=== PATIENT | male | born 1990 ===

== ENCOUNTER 2018-01-25 10:45 | Emergency (ER) | payer OTHER ==
[2018-01-25 11:08] VITALS: RESP 16; O2SAT 98
[2018-01-25 12:26] LABS: BASO # 0.1 K/uL (0.0-0.2); BASO % 0.9 % (0.0-2.0); EOS # 0.1 K/uL (0.0-0.7); EOS % 1.7 % (0.0-4.0); HEMOGLOBIN 14.3 g/dL (12.0-18.0); LYMPH # 2.4 K/uL (1.0-4.3); LYMPH % 31.8 % (20.0-40.0); MEAN CORPUSCULAR HEMOGLOBIN 31.9 pg (27.0-31.0); MEAN CORPUSCULAR HGB CONC 35.8 g/dL (33.0-37.0); MEAN PLATELET VOLUME 8.3 fl (7.2-11.7); MONO # 0.4 K/uL (0.0-0.8); MONO % 5.1 % (0.0-10.0); NEUT # 4.5 K/uL (1.8-7.0); NEUT % 60.5 % (50.0-75.0); RBC 4.48 Mil/uL (4.40-5.90); RED CELL DISTRIBUTION WIDTH 13.8 % (11.5-14.5); WHITE BLOOD COUNT 7.5 K/uL (4.8-10.8)
[2018-01-25 12:34] LABS: INR 0.9 (0.9-1.2); PARTIAL THROMBOPLASTIN TIME 29.8 Seconds (25.6-37.1)
[2018-01-25 12:39] LABS: ALB/GLOB RATIO 1.2 (1.0-2.1); ALBUMIN 4.4 g/dL (3.5-5.0); ALT/SGPT 51 U/L (21-72); AST/SGOT 35 U/L (17-59); BLOOD UREA NITROGEN 13 mg/dl (9-20); CALCIUM 9.2 mg/dL (8.4-10.2); GFR AFRICAN-AMERICAN > 60; GFR NON-AFRICAN AMERICAN > 60; LIPASE 29 U/L (23-300)
--- NOTE | 2018-01-25 12:54 | ED PDOC ---
HPI: Chest Pain Time Seen by Provider: 01/25/18 11:31 Chief Complaint (Nursing): Chest Pain Chief Complaint (Provider): Chest Pain History Per: Patient History/Exam Limitations: no limitations Onset/Duration Of Symptoms: Days (x3) Current Symptoms Are (Timing): Still Present Quality: Squeezing Additional Complaint(s): 27 year old male, with a past medical history of HIV, presents to ED complaining of intermittent chest pain on the left side for the past 3 days. He states pain comes at rest and doesn't worsen with activity or exertion. Patient also reports right sided ear ache associated with a headache for the past 2 weeks. He was seen by his PMD last week and prescribed antibiotic ear drops which have relieved symptoms but wants repeat inspection. Denies fever, SOB, abdominal pain, cough, recent travel, prolonged immobility, calf pain, leg pain , vision changes, nausea, vomiting, diarrhea, and orthopnea. Of note, patient had a viral load done 4- 6 months ago which was undetectable. Patient has been compliant with his HIV regimen. PCP: Marvin Gonzalez Past Medical History Reviewed: Historical Data, Nursing Documentation, Vital Signs Vital Signs: Last Vital Signs Temp 98.1 F 01/25/18 14:39 Pulse 66 01/28/18 22:20 Resp 16 01/25/18 14:39 BP 132/71 01/25/18 14:39 Pulse Ox 98 01/28/18 22:20 - Medical History PMH: HIV - Surgical History Surgical History: No Surg Hx - Family History Family History: States: Unknown Family Hx Other Family History: Patient is adopted and unaware of family history. - Social History Current smoker - smoking cessation education provided: Yes (4 cigarettes daily) Alcohol: Social Drugs: Denies - Home Medications Home Medications: Ambulatory Orders Medication Instructions Recorded Naproxen 500 mg PO BID #20 tab 01/25/18 - Allergies Allergies/Adverse Reactions: Allergies Allergy/AdvReac Type Severity Reaction Status Date / Time No Known Allergies Allergy Verified 01/25/18 11:14 Review of Systems ROS Statement: Except As Marked, All Systems Reviewed And Found Negative Constitutional: Negative for: Fever Eyes: Negative for: Vision Change ENT: Positive for: Ear Pain (associated with headache) Cardiovascular: Positive for: Chest Pain Respiratory: Negative for: Cough, Shortness of Breath Gastrointestinal: Negative for: Nausea, Vomiting, Diarrhea Musculoskeletal: Negative for: Leg Pain, Other (calf pain) Physical Exam - Reviewed Nursing Documentation Reviewed: Yes Vital Signs Reviewed: Yes - Physical Exam Comments: GENERAL APPEARANCE: Patient is awake, alert, oriented x 3, in no acute distress , resting comfortably, speaking in full sentences. SKIN: Warm, dry; (-) cyanosis. EYES: (-) conjunctival pallor. ENMT: Mucous membranes moist. EARS: TMs are nonbulging and nonerythematous bilaterally. Pharynx: clear (-) erythema (-) exudate. Uvula midline. Nares patent (-) rhinorrhea NECK: Supple, FROM (-) tenderness, (-) stiffness, (-) lymphadenopathy, (-) JVD. CHEST AND RESPIRATORY: (-) rash, (-) chest wall tenderness. Lungs: (-) rales , (-) rhonchi, (-) wheezes, (-) rub; breath sounds equal bilaterally. Respirations even and nonlabored. HEART AND CARDIOVASCULAR: (-) chest wall tenderness (-) irregularity; (-) murmur, (-) gallop, (-) rub. ABDOMEN AND GI: Soft; (-) distention, (-) tenderness, (-) palpable pulsatile mass, (-) CVA tenderness. EXTREMITIES: (-) deformity; (-) edema, (-) calf tenderness. (+) distal pulses. NEURO AND PSYCH: Mental status as above. Cranial nerves grossly intact; strength symmetric. Cerebellar tests intact. Gait steady, speech clear. - Laboratory Results Result Diagrams: 01/25/18 12:15 01/25/18 12:15 Urine dip results: Positive for: Protein (30). Negative for: Leukocyte Esterase , Blood, Nitrate, Ketones, Glucose, Bilirubin - ECG ECG: Positive for: Interpreted By Me, Viewed By Me ECG Rhythm: Positive for: Sinus Rhythm (normal), ST/T Changes (no elevations) Interpretation Of ECG: No ectopy and QTC at 427. Rate: 66 O2 Sat by Pulse Oximetry: 98 (RA) Pulse Ox Interpretation: Normal Medical Decision Making Medical Decision Making: Initial Impression: Chest pain Initial Plan: IV access CMP CBC D-Dimer PTT PT/INR Drug screen Lipase Troponin Urine dipstick Chest X-ray HIV 1 RNA Toradol 30mg IM EKG 1345 Labs reviewed and grossly unremarkable. Utox (+) cannabinoids. CXR reviewed, radiology report follows: HISTORY: COMPARISON: No prior. TECHNIQUE: Chest PA and lateral FINDINGS: LINES AND TUBES: None. LUNG AND PLEURA: The lungs are well inflated and clear. No pleural effusion or pneumothorax. HEART AND MEDIASTINUM: The heart is not enlarged. The hilar and mediastinal contours are within normal limits. SKELETAL STRUCTURES: The bony structures are within normal limits for the patient's age. VISUALIZED UPPER ABDOMEN: Normal. OTHER FINDINGS: None. IMPRESSION: No active pulmonary disease. 1425 On re-evaluation, patient reports resolution of symptoms and denies chest pain, SOB, dizziness, headache at present. On exam, patient remains AAOx3, in no acute distress. Lungs clear to auscultation, cardiac RRR, abdomen soft, non- tender, repeat neuro exam shows no focal findings. VSS, stable for discharge. Lab/Diagnostic results d/w the patient in great detail. Diagnosis of nonspecific chest pain d/w the patient. Based on history, exam and diagnostic results, plan will be for outpatient follow up. Patient instructed to follow-up with pmd / referral provided / the clinic in 1- 2 days without fail. Advised to take medication as prescribed. Return to the emergency room at any time for any new or worsening symptoms. Patient states he fully agrees with and understands discharge instructions. States that he agrees with the plan and disposition. Verbalized and repeated discharge instructions and plan. I have given the patient opportunity to ask any additional questions. ------- Scribe Attestation: Documented by Hipolito Olivares acting as a scribe for Lesvia RODRÍGUEZ. Provider Scribe Attestation: All medical record entries made by the Scribe were at my direction and personally dictated by me. I have reviewed the chart and agree that the record accurately reflects my personal performance of the history, physical exam, medical decision making, and the department course for this patient. I have also personally directed, reviewed, and agree with the discharge instructions and disposition. Disposition - Clinical Impression Clinical Impression: Nonspecific chest pain - Patient ED Disposition Is Patient to be Admitted: No Counseled Patient/Family Regarding: Studies Performed, Diagnosis, Need For Followup, Rx Given - Disposition Referrals: Marvin Aguirre MD [Staff Provider] - Disposition: Routine/Home Disposition Time: 14:32 Condition: STABLE Additional Instructions: FOLLOW UP WITH PMD IN 1-2 DAYS WITHOUT FAIL. RETURN TO ED WITH ANY NEW OR WORSENING SYMPTOMS. Prescriptions: Naproxen 500 mg PO BID #20 tab Instructions: Chest Pain, Chest Pain That Is Not Caused by the Heart (DC) Forms: [employer] (Frisian) Print Language: ICELANDIC - POA Present On Arrival: None Results - Lab Results Lab Results: 01/25/18 01/25/18 01/25/18 18:37 12:47 12:15 WBC RBC Hgb Hct MCV MCH MCHC RDW Plt Count MPV Neut % (Auto) Lymph % (Auto) [place] % (Auto) Eos % (Auto) Baso % (Auto) Neut # (Auto) Lymph # (Auto) [place] # (Auto) Eos # (Auto) Baso # (Auto) PT 10.0 INR 0.9 APTT 29.8 D-Dimer, Quantitative 96 Sodium Potassium Chloride Carbon Dioxide Anion Gap BUN Creatinine Est GFR ( Amer) Est GFR (Non-Af Amer) Random Glucose Calcium Total Bilirubin AST ALT Alkaline Phosphatase Troponin I Total Protein Albumin Globulin Albumin/Globulin Ratio Lipase Urine Opiates Screen Negative Urine Methadone Screen Negative Ur Barbiturates Screen Negative Ur Phencyclidine Scrn Negative Ur Amphetamines Screen Negative U Benzodiazepines Scrn Negative U Oth Cocaine Metabols Negative U Cannabinoids Screen Positive H HIV-1 RNA Qnt (RT-PCR) <1.30 not detected 01/25/18 01/25/18 12:15 12:15 WBC 7.5 RBC 4.48 Hgb 14.3 Hct 39.9 MCV 89.0 MCH 31.9 H MCHC 35.8 RDW 13.8 Plt Count 241 MPV 8.3 Neut % (Auto) 60.5 Lymph % (Auto) 31.8 [place]berry % (Auto) 5.1 Eos % (Auto) 1.7 Baso % (Auto) 0.9 Neut # (Auto) 4.5 Lymph # (Auto) 2.4 Newberry # (Auto) 0.4 Eos # (Auto) 0.1 Baso # (Auto) 0.1 PT INR APTT D-Dimer, Quantitative Sodium 141 Potassium 4.2 Chloride 103 Carbon Dioxide 24 Anion Gap 18 BUN 13 Creatinine 0.9 Est GFR ( Amer) > 60 Est GFR (Non-Af Amer) > 60 Random Glucose 93 Calcium 9.2 Total Bilirubin 0.6 AST 35 ALT 51 Alkaline Phosphatase 72 Troponin I < 0.0120 Total Protein 8.1 Albumin 4.4 Globulin 3.7 Albumin/Globulin Ratio 1.2 Lipase 29 Urine Opiates Screen Urine Methadone Screen Ur Barbiturates Screen Ur Phencyclidine Scrn Ur Amphetamines Screen U Benzodiazepines Scrn U Oth Cocaine Metabols U Cannabinoids Screen HIV-1 RNA Qnt (RT-PCR)
[2018-01-25 13:36] LABS: BARBITURATES, UR NEGATIVE (NEGATIVE); BENZODIAZEPINES, UR NEGATIVE (NEGATIVE); OPIATES, UR NEGATIVE (NEGATIVE); PHENCYCLIDINE, UR NEGATIVE (NEGATIVE)
[2018-01-25 14:52] VITALS: BP 132/71; TEMP 98.1
[2018-01-28 22:17] VITALS: PULSE 66
== END 2018-01-25 14:41 | disposition home or self-care (01) ==
LOC: H.ER 10:45
DX: R07.89 Other chest pain (principal)
CPT/HCPCS: 71046; 80053; 80324; 80345; 80346; 80349; 80353; 80358; 80361; 83690; 83992; 84484; 85025; 85378; 85610; 85730; 87536; 96372; 99283; J1885

== ENCOUNTER 2018-10-24 20:20 | Emergency (ER) | payer BC ==
[2018-10-24 20:29] VITALS: RESP 18; TEMP 98.4
[2018-10-24] MEDS: Albuterol-Ipratrop 3 mg / 0.5 (3 ml) UD INH STA ×2 (21:36→21:37)
[2018-10-24] MEDS ORDERED: Albuterol-Ipratrop 3 mg / 0.5 (3 ml) UD ONE (21:36)
[2018-10-24 22:26] VITALS: O2SAT 99
[2018-10-24 22:30] VITALS: BP 145/82; PULSE 78
--- NOTE | 2018-10-24 22:33 | ED PDOC ---
HPI: SOB/CHF/COPD Time Seen by Provider: 10/24/18 20:52 Chief Complaint (Nursing): Shortness Of Breath Chief Complaint (Provider): Shortness Of Breath History Per: Patient History/Exam Limitations: no limitations Onset/Duration Of Symptoms: Hrs Current Symptoms Are (Timing): Still Present Additional Complaint(s): 28 y/o male with a PMHx of Asthma and is an active smoker presents to the ED for evaluation of dyspnea and shortness of breath. Patient reports of using a Ventolin pump that in 2017 with some relief of symptoms. Otherwise, patient denies fevers, sick contacts and recent travel. PMD: Viktor Aguirre Past Medical History Reviewed: Historical Data, Nursing Documentation, Vital Signs Vital Signs: Last Vital Signs Temp 98.4 F 10/24/18 20:28 Pulse 78 10/24/18 22:29 Resp 18 10/24/18 22:29 BP 145/82 10/24/18 22:29 Pulse Ox 99 10/24/18 22:29 - Medical History PMH: Asthma (seasonal), HIV - Surgical History Surgical History: No Surg Hx - Family History Family History: States: Unknown Family Hx - Social History Current smoker - smoking cessation education provided: Yes (0.5 packs a day) - Home Medications Home Medications: Ambulatory Orders Medication Instructions Recorded RX: Naproxen 500 mg PO BID #20 tab 01/25/18 Albuterol HFA [Ventolin HFA 90 2 puff IH [id number] #1 puff 10/24/18 mcg/actuation (8 g)] RX: predniSONE [predniSONE Tab] 60 mg PO DAILY #9 tab 10/24/18 - Allergies Allergies/Adverse Reactions: Allergies Allergy/AdvReac Type Severity Reaction Status Date / Time No Known Allergies Allergy Verified 01/25/18 11:14 Review of Systems ROS Statement: Except As Marked, All Systems Reviewed And Found Negative Respiratory: Positive for: Shortness of Breath, Other (dyspnea) Physical Exam - Reviewed Nursing Documentation Reviewed: Yes Vital Signs Reviewed: Yes - Physical Exam Appears: Positive for: No Acute Distress Head Exam: Positive for: ATRAUMATIC, NORMOCEPHALIC Skin: Positive for: Normal Color, Warm, Dry Eye Exam: Positive for: Normal appearance, EOMI, PERRL Neck: Positive for: Normal, Painless ROM, Supple Cardiovascular/Chest: Positive for: Regular Rate, Rhythm. Negative for: Murmur Respiratory: Positive for: Wheezing (mild faint wheezing bilaterally). Negative for: Accessory Muscle Use, Respiratory Distress Gastrointestinal/Abdominal: Positive for: Normal Exam, Soft. Negative for: Tenderness Extremity: Positive for: Normal ROM. Negative for: Deformity Neurologic/Psych: Positive for: Alert, Oriented. Negative for: Motor/Sensory Deficits - ECG O2 Sat by Pulse Oximetry: 99 (RA) Pulse Ox Interpretation: Normal Medical Decision Making Medical Decision Making: Time: 2057 A/P: 28 y/o active smoker with a history of Asthma presenting with shortness of breath. -- Patient very well appearing with normal vitals. -- Likely experiencing minor asthma exacerbation. -- Will provide nebulizer treatment and steroids. -- Will obtain CXR -- EKG -- CXR Two Views -- Duoneb 3mg/0.5mg 3ml (UD) 3ml INH -- Duoneb 3mg/0.5mg 3ml (UD) 3ml INH -- PredniSONE 40 mg PO -- Peak Flow Pre/Post Tx Time: 2200 -- Patient no longer wheezing and reports an improvement of symptoms at this time. Provided patient risks of smoking and damages to lungs. Patient strongly advised to follow up with PMD at [facility] for further management. Scribe Attestation: Documented by Nikos Oliva, acting as a scribe for Memo Evans MD. Provider Scribe Attestation: All medical record entries made by the Scribe were at my direction and personally dictated by me. I have reviewed the chart and agree that the record accurately reflects my personal performance of the history, physical exam, medical decision making, and the department course for this patient. I have also personally directed, reviewed, and agree with the discharge instructions and disposition. Disposition - Clinical Impression Clinical Impression: Asthma exacerbation Counseled Patient/Family Regarding: Studies Performed, Diagnosis, Need For Followup, Smoking Cessation - Disposition Referrals: Viktor Aguirre MD [Staff Provider] - Disposition: Routine/Home Disposition Time: 23:30 Condition: STABLE Prescriptions: Albuterol HFA [Ventolin HFA 90 mcg/actuation (8 g)] 2 puff IH [id number] #1 puff RX: predniSONE [predniSONE Tab] 60 mg PO DAILY #9 tab Instructions: Smoking: Not Just Harmful to Your Lungs and Heart, Asthma, Adult (DC), Quitting Smoking, Drugs to Help You Stop Using Tobacco Forms: [employer] (Ghanaian)
--- NOTE | 2018-10-25 10:40 | RAD ---
Date of service: 10/24/2018 HISTORY: smoker, cough COMPARISON: Chest radiographs 01/25/2018. TECHNIQUE: Chest PA and lateral FINDINGS: LUNGS: Slightly diminished inspiratory volume. No infiltrate bilaterally. PLEURA: No significant pleural effusion identified. No pneumothorax apparent. CARDIOVASCULAR: No aortic atherosclerotic calcification present. Normal cardiac size. No pulmonary vascular congestion. OSSEOUS STRUCTURES: No significant abnormalities. VISUALIZED UPPER ABDOMEN: Normal. OTHER FINDINGS: None. IMPRESSION: Diminished inspiratory volume. No acute infiltrate bilaterally in the interval. No acute cardiovascular changes identified.
--- NOTE | 2018-10-25 12:46 | CARD ---
APPROVED REPORT Date of service: 10/24/2018 EKG Measurement Heart [id number] <Conclusion> Normal sinus rhythm Normal ECG
== END 2018-10-24 22:19 | disposition home or self-care (01) ==
LOC: H.ER 20:20
DX: J45.901 Unspecified asthma with (acute) exacerbation (principal); F17.210 Nicotine dependence, cigarettes, uncomplicated; B20 Human immunodeficiency virus [HIV] disease